=== PATIENT | female | born 1940 | race African-American/Black ===

== ENCOUNTER → 2018-05-11 | Outpatient (CLI) | payer MEDICARE | END | disposition home or self-care (01) | LOC: RAD 10:21 | DX: R05 Cough (principal) | CPT/HCPCS: 71046 ==

== ENCOUNTER → 2018-08-10 | Outpatient (CLI) | payer MEDICARE ==
--- NOTE | 2018-08-10 18:33 | RAD ---
Chest, 2 views, 08/10/2018: HISTORY: Cough, carbon monoxide exposure Comparison is made to a study from 05/11/2018. The heart size and pulmonary vascularity are normal. No pulmonary infiltrate is seen. There is no evidence of pleural fluid. Mild scattered degenerative changes are present in the spine. IMPRESSION: No acute cardiopulmonary abnormality is detected. Electronically signed by: Roshan Mirza MD (08/10/2018 6:30 PM) [facility]
== END | disposition home or self-care (01) ==
LOC: RAD 13:11
PROVIDERS: ATTEND Internal Medicine Pulmonary Disease
DX: M51.34 Other intervertebral disc degeneration, thoracic region (principal); Z77.118 Contact with and (suspected) exposure to other environmental pollution
CPT/HCPCS: 71046

== ENCOUNTER 2018-10-02 02:09 | Emergency (ER) | payer MEDICARE ==
[~2018-10-02] VITALS: Ht 157.5 cm; Wt 71.7 kg
[~2018-10-02 02:09] MED LIST: AMLO10TA6 PO; ASPI325T8 PO; CETI10TA22 PO; HYDR-2765 PO; METF500T3 PO; TIZA4TAB PO; [UNRECOGNIZED DRUG - CODE] PO
[2018-10-02] MEDS ORDERED: CYCL5TAB PO (03:08)
[2018-10-02] MEDS ORDERED: MELO7.5T29 PO (03:08)
--- NOTE | 2018-10-02 03:08 | PHYS DOC ---
Past Medical History Past Medical History: Hypertension Additional Past Medical Histor: SEASONAL ALLERGIES Past Surgical History: Hysterectomy, Other Additional Past Surgical Histo: R SHOULDER Alcohol Use: Occasionally Drug Use: None Adult General Chief Complaint Chief Complaint: Neck Pain HPI HPI Patient is a 78 year old female who presents with neck pain. This has been present for the past 4 days. No trauma. No numbness or paresthesias. No weakness. Patient had similar episode at the beginning of the month. Increased pain with movement. No fever. Mild headache at where the muscles attach at the back of the skull. Increased pain with movement. It feels like a spasm.[] Review of Systems Review of Systems Constitutional: Denies fever or chills [] Eyes: Denies change in visual acuity, redness, or eye pain [] HENT: Denies nasal congestion or sore throat [] Respiratory: Denies cough or shortness of breath [] Cardiovascular: No chest pain or palpitations[] GI: Denies abdominal pain, nausea, vomiting, bloody stools or diarrhea [] : Denies dysuria or hematuria [] Musculoskeletal: See history of present illness[] Integument: Denies rash or skin lesions [] Neurologic: Denies focal weakness or sensory changes, see history of present illness [] Endocrine: Denies polyuria or polydipsia [] All other systems were reviewed and found to be within normal limits, except as documented in this note. Allergies Allergies Allergies Coded Allergies Type Severity Reaction Last Updated Verified cephalexin Allergy Intermediate SWELLING 09/09/18 Yes metformin Allergy Intermediate SWELLING 09/09/18 Yes Physical Exam Physical Exam Constitutional: Well developed, well nourished, crit discomfort, non-toxic appearance. [] HENT: Normocephalic, atraumatic, bilateral external ears normal, oropharynx moist, no oral exudates, nose normal. [] Eyes: PERRLA, EOMI, conjunctiva normal, no discharge. [] Neck: Limited range of motion, spasm of bilateral cervical paraspinal musculature. No lymphadenopathy present. Palpation of the musculature re- creates the pain. There is no midline tenderness.[] Cardiovascular:Heart rate regular rhythm, no murmur [] Lungs & Thorax: Bilateral breath sounds clear to auscultation [] Abdomen: Not examined[] Skin: Warm, dry, no erythema, no rash. [] Back: No tenderness, no CVA tenderness. [] Extremities: No tenderness, no cyanosis, no clubbing, ROM intact, no edema. [] Neurologic: Alert and oriented X 3, normal motor function, normal sensory function, no focal deficits noted. [] Psychologic: Affect normal, judgement normal, mood normal. [] EKG EKG [] Radiology/Procedures Radiology/Procedures [] Course & Med Decision Making Course & Med Decision Making Pertinent Labs and Imaging studies reviewed. (See chart for details) Medical decision making: This appears to be muscle spasm, no evidence of neurologic issue, no evidence of meningitis. ED course: Patient arrived, was placed in bed, tolerated exam well. Patient was given IM NSAIDs since she drove herself. Discussed findings and plan with the patient who voiced understanding. All questions were answered. Dragon Disclaimer Dragon Disclaimer This electronic medical record was generated, in whole or in part, using a voice recognition dictation system. Departure Departure Impression: Primary Impression: Cervical paraspinal muscle spasm Disposition: HOME, SELF-CARE Condition: GOOD Referrals: SHERI GARRISON MD (PCP) Follow-up in 2 days Patient Instructions: Torticollis, Acute Additional Instructions: Follow-up with your regular doctor in 2 days. Apply warm compresses for 15 minutes at a time, at least 4 times a day to your neck. Take the medication as prescribed. Return to the ER if worsening pain or any other concerns. Scripts Cyclobenzaprine Hcl (CYCLOBENZAPRINE HCL) 5 Mg Tablet 5 MG PO PRN TID PRN for MUSCLE SPASM, #15 TAB Prov: MELECIO REID DO 10/02/18 Meloxicam (MELOXICAM) 7.5 Mg Tablet 7.5 MG PO DAILY, #20 TAB Prov: MELECIO REID DO 10/02/18 MELECIO REID DO Oct 02, 2018 03:08
[2018-10-02 03:15] VITALS: BP 149/86
[2018-10-02] MEDS ORDERED: KETOROLAC 15 MG/ML VIAL. IM ONE (03:30)
== END 2018-10-02 03:43 | disposition home or self-care (01) ==
LOC: ER 02:09
DX: M62.838 Other muscle spasm (principal); M54.2 Cervicalgia; R51 Headache; I10 Essential (primary) hypertension; Z88.1 Allergy status to other antibiotic agents; Z88.8 Allergy status to other drugs, medicaments and biological substances
CPT/HCPCS: 96372; 99283; J1885

== ENCOUNTER 2020-05-28 15:01 | Emergency (ER) | payer MEDICARE ==
[~2020-05-28] VITALS: Ht 154.9 cm; Wt 71.8 kg
[~2020-05-28 15:01] MED LIST changes: -AMLO10TA6 PO; +AMLO10TA8 PO; -CETI10TA22 PO; +CETI10TA24 PO; +CYCL5TAB PO; +LORA-790 PO; +MELO7.5T29 PO; -TIZA4TAB PO; +TIZA4TAB2 PO; -[UNRECOGNIZED DRUG - CODE] PO
[2020-05-28] MEDS ORDERED: FAMOTIDINE 20 MG/2 ML VIAL IVP ONE (16:00)
[2020-05-28] MEDS ORDERED: fentaNYL PF VIAL 100 MCG/2 ML VIAL IV PRN (16:00)
--- NOTE | 2020-05-28 16:12 | EKG ---
[facility] [address] [place] [address] Test Date: 2020-05-28 Test Time: 15:43:23 Pat Name: CARRIE MELENDEZ Department: Room: Gender: [employer] Person: : 1938-05-01 Requested By: RICARDO WINSLOW Order Number: [id number] Reading MD: Measurements Intervals [place] Rate: 89 P: 27 AL: 138 QRS: -25 QRSD: 72 T: 15 QT: 346 QTc: 422 Interpretive Statements SINUS RHYTHM LEFT ATRIAL ABNORMALITY LEFTWARD AXIS QRS(T) CONTOUR ABNORMALITY CONSISTENT WITH INFERIOR INFARCT PROBABLY OLD ABNORMAL ECG RI6.01 No previous ECG available for comparison
[2020-05-28 16:16] LABS: BASO # 0.1 x10^3/uL (0.0-0.2); BASO % 1 % (0-3); EOS # 0.2 x10^3/uL (0.0-0.7); EOS % 3 % (0-3); HEMATOCRIT 37.9 % (36.0-47.0); HEMOGLOBIN 12.7 g/dL (12.0-15.5); LYMPH # 3.4 x10^3/uL (1.0-4.8); LYMPH % 39 % (24-48); MEAN CORPUSCULAR HEMOGLOBIN 30 pg (25-35); MEAN CORPUSCULAR HGB CONC 33 g/dL (31-37); MEAN CORPUSCULAR VOLUME 89 fL (79-100); MONO % 11 % (0-9); NEUT # 4.1 x10^3/uL (1.8-7.7); NEUT % 47 % (31-73); PLATELET COUNT 345 x10^3/uL (140-400); RED BLOOD COUNT 4.25 x10^6/uL (3.50-5.40); RED CELL DISTRIBUTION WIDTH 14.6 % (11.5-14.5); WHITE BLOOD COUNT 8.8 x10^3/uL (4.0-11.0)
[2020-05-28 16:25] LABS: PROTHROMBIN TIME PATIENT 13.9 SEC (11.7-14.0)
--- NOTE | 2020-05-28 16:36 | RAD ---
EXAM: PORTABLE CHEST 1V INDICATION: Reason: rib pain, DRAWING BLOOD 3:58PM / Spl. Instructions: / History: . TECHNIQUE: Single view COMPARISON: None FINDINGS: The heart size is normal. The great vessels appear unremarkable. There is no hilar or mediastinal mass. The lungs are clear. There is no pleural effusion or pneumothorax. There are no significant osseous abnormalities. IMPRESSION: No active cardiopulmonary disease. Electronically signed by: Nicholas Herrera MD (05/28/2020 4:33 PM) [facility]
--- NOTE | 2020-05-28 16:45 | RAD ---
Ultrasound of the right upper quadrant of the abdomen 05/28/2020 CLINICAL HISTORY: Right upper quadrant abdominal pain. TECHNIQUE: A real-time ultrasound examination of the right upper quadrant of the abdomen was performed. Multiple images were obtained. FINDINGS: The gallbladder is contracted to some degree. No gallstones are visualized. The gallbladder wall thickness is within normal limits. No pericholecystic fluid is seen. The common bile duct measures 3 mm in diameter which is within normal limits. The liver is normal in size measuring 12.5 cm in length. Increased echogenicity of the liver parenchyma is seen consistent with fatty infiltration. No focal abnormality of the liver is noted. The visualized portions of the pancreas and right kidney are within normal limits. IMPRESSION: Fatty infiltration of the liver. Otherwise negative study. Electronically signed by: Hector Burr MD (05/28/2020 4:42 PM) [id number]
[2020-05-28 17:53] LABS: CALCIUM 8.9 mg/dL (8.5-10.1); CREATININE 0.9 mg/dL (0.6-1.0); GFR 72.4
[2020-05-28 17:54] VITALS: BP 132/63
[2020-05-28 18:00] LABS: ALBUMIN 3.7 g/dL (3.4-5.0); ALBUMIN/GLOBULIN RATIO 0.8 (1.0-1.7); MAGNESIUM 2.1 mg/dL (1.8-2.4); TOTAL BILIRUBIN 0.4 mg/dL (0.2-1.0); TOTAL PROTEIN 8.4 g/dL (6.4-8.2)
[2020-05-28 18:51] LABS: BILIRUBIN,URINE NEGATIVE (NEG); CLARITY,URINE CLOUDY; COLOR,URINE YELLOW; NITRITE,URINE NEGATIVE (NEG); PH,URINE 5.5 (<5.0-8.0); PROTEIN,URINE NEGATIVE (NEG-TRACE); UROBILINOGEN,URINE 0.2 mg/dL (0.2 mg/dL)
[2020-05-28 18:55] LABS: BACTERIA,URINE FEW /HPF (0-FEW); RBC,URINE 0 /HPF (0-2); SQUAMOUS EPITHELIAL CELL,UR FEW /LPF; WBC,URINE RARE /HPF (0-4)
[2020-05-28 18:58] LABS: BARBITURATES NEG (NEG); BENZODIAZEPINES NEG (NEG); CANNABINOIDS NEG (NEG); COCAINE NEG (NEG); METHADONE NEG (NEG); OPIATES NEG (NEG); PHENCYCLIDINE NEG (NEG)
[2020-05-28 19:01] LABS: AMPHETAMINE/METHAMPHETAMINE NEG (NEG)
[2020-05-28] MEDS ORDERED: HYDR-2761 PO (19:19)
[2020-05-28] MEDS ORDERED: CYCL10TA2 PO (19:19)
--- NOTE | 2020-05-28 19:20 | PHYS DOC ---
Past Medical History Past Medical History: No Pertinent History, Hypertension Additional Past Medical Histor: SEASONAL ALLERGIES Past Surgical History: Hysterectomy, Other Additional Past Surgical Histo: R SHOULDER Smoking Status: Never Smoker Alcohol Use: Occasionally Drug Use: None General Adult EDM: Chief Complaint: SHOUDLER HPI: HPI: Patient is a 82 year old female with history of hypertension who presents to the ED today complaining of intermittent episodes of 10 out of 10 right upper quadrant abdominal pain radiating to the right ribs into the right shoulder, patient reports symptoms began after eating "bad food" on Tuesday. Patient denies any exacerbating or relieving factors but she reports on Tuesday she also did some yard work and could have triggered the pain. Denies any nausea vomiting. Denies any diarrhea. Review of Systems: Review of Systems: Constitutional: Denies fever or chills. [] Eyes: Denies change in visual acuity. [] HENT: Denies nasal congestion or sore throat. [] Respiratory: Reports right lateral rib pain, denies cough or shortness of breath. [] Cardiovascular: Denies chest pain or edema. [] GI: Reports right upper quadrant abdominal pain, denies nausea, vomiting, bloody stools or diarrhea. [] : Denies dysuria. [] Musculoskeletal: Denies back pain or joint pain. [] Integument: Denies rash. [] Neurologic: Denies headache, focal weakness or sensory changes. [] Endocrine: Denies polyuria or polydipsia. [] Lymphatic: Denies swollen glands. [] Psychiatric: Denies depression or anxiety. [] Heart Score: HEART Score for Chest Pain: HEART Score for Chest Pain Response (Comments) Value History Slighlty/Non-Suspicious 0 ECG Normal 0 Age > 65 2 Risk Factors 1 or 2 Risk Factors 1 Troponin < Normal Limit 0 Total 3 Risk Factors: Risk Factors: DM, Current or recent (<one month) smoker, HTN, HLP, family history of CAD, obesity. Risk Scores: Score 0 - 3: 2.5% MACE over next 6 weeks - Discharge Home Score 4 - 6: 20.3% MACE over next 6 weeks - Admit for Clinical Observation Score 7 - 10: 72.7% MACE over next 6 weeks - Early Invasive Strategies Current Medications: Current Medications Medications (Trade) Dose Ordered Sig/Maribel Start Time Stop Time Status Last Admin Dose Admin Famotidine (Pepcid Vial) 20 mg 1X ONCE 05/28/20 16:00 05/28/20 16:01 DC 05/28/20 16:05 20 MG Fentanyl Citrate (Fentanyl 2ml Vial) 50 mcg PRN Q15MIN PRN 05/28/20 16:00 05/29/20 15:59 05/28/20 16:05 50 MCG Allergies: Allergies: Allergies Coded Allergies Type Severity Reaction Last Updated Verified cephalexin Allergy Intermediate SWELLING 09/09/18 Yes metformin Allergy Intermediate SWELLING 09/09/18 Yes Physical Exam: PE: Constitutional: Well developed, well nourished, no acute distress, non-toxic appearance. [] HENT: Normocephalic, atraumatic, bilateral external ears normal, oropharynx moist, no oral exudates, nose normal. [] Eyes: PERRLA, EOMI, conjunctiva normal, no discharge. [] Neck: Normal range of motion, no tenderness, supple, no stridor. [] Cardiovascular:Heart rate regular rhythm, no murmur [] Lungs & Thorax: Bilateral breath sounds clear to auscultation [] Abdomen: Bowel sounds normal, soft, no tenderness, no masses, no pulsatile masses. [] Skin: Warm, dry, no erythema, no rash. [] Back: No tenderness, no CVA tenderness. [] Extremities: No tenderness, no cyanosis, no clubbing, ROM intact, no edema. [] Neurologic: Alert and oriented X 3, normal motor function, normal sensory function, no focal deficits noted. [] Psychologic: Affect normal, judgement normal, mood normal. [] Current Patient Data: Labs: Laboratory Tests Test 05/28/20 16:00 05/28/20 17:25 05/28/20 18:40 White Blood Count 8.8 x10^3/uL (4.0-11.0) Red Blood Count 4.25 x10^6/uL (3.50-5.40) Hemoglobin 12.7 g/dL (12.0-15.5) Hematocrit 37.9 % (36.0-47.0) Mean Corpuscular Volume 89 fL (79-100) Mean Corpuscular Hemoglobin 30 pg (25-35) Mean Corpuscular Hemoglobin Concent 33 g/dL (31-37) Red Cell Distribution Width 14.6 % (11.5-14.5) H Platelet Count 345 x10^3/uL (140-400) Neutrophils (%) (Auto) 47 % (31-73) Lymphocytes (%) (Auto) 39 % (24-48) Monocytes (%) (Auto) 11 % (0-9) H Eosinophils (%) (Auto) 3 % (0-3) Basophils (%) (Auto) 1 % (0-3) Neutrophils # (Auto) 4.1 x10^3/uL (1.8-7.7) Lymphocytes # (Auto) 3.4 x10^3/uL (1.0-4.8) Monocytes # (Auto) 1.0 x10^3/uL (0.0-1.1) Eosinophils # (Auto) 0.2 x10^3/uL (0.0-0.7) Basophils # (Auto) 0.1 x10^3/uL (0.0-0.2) Prothrombin Time 13.9 SEC (11.7-14.0) Prothrombin Time INR 1.1 (0.8-1.1) D-Dimer (Maya) 0.44 ug/mlFEU (0.00-0.50) Sodium Level 138 mmol/L (136-145) Potassium Level 4.0 mmol/L (3.5-5.1) Chloride Level 101 mmol/L (98-107) Carbon Dioxide Level 29 mmol/L (21-32) Anion Gap 8 (6-14) Blood Urea Nitrogen 13 mg/dL (7-20) Creatinine 0.9 mg/dL (0.6-1.0) Estimated GFR (Cockcroft-Gault) 72.4 BUN/Creatinine Ratio 14 (6-20) Glucose Level 112 mg/dL (70-99) H Calcium Level 8.9 mg/dL (8.5-10.1) Magnesium Level 2.1 mg/dL (1.8-2.4) Total Bilirubin 0.4 mg/dL (0.2-1.0) Aspartate Amino Transferase (AST) 20 U/L (15-37) Alanine Aminotransferase (ALT) 21 U/L (14-59) Alkaline Phosphatase 60 U/L (46-116) Troponin I Quantitative < 0.017 ng/mL (0.000-0.055) IV-Yof-J-Type Natriuretic Peptide 39 pg/mL (0-449) Total Protein 8.4 g/dL (6.4-8.2) H Albumin 3.7 g/dL (3.4-5.0) Albumin/Globulin Ratio 0.8 (1.0-1.7) L Lipase 94 U/L (73-393) Thyroid Stimulating Hormone (TSH) 2.199 uIU/mL (0.358-3.74) Urine Collection Type Unknown Urine Color Yellow Urine Clarity Cloudy Urine pH 5.5 (<5.0-8.0) Urine Specific [place] 1.020 (1.000-1.030) Urine Protein Negative mg/dL (NEG-TRACE) Urine Glucose (UA) Negative mg/dL (NEG) Urine Ketones (Stick) 15 mg/dL (NEG) Urine Blood Negative (NEG) Urine Nitrite Negative (NEG) Urine Bilirubin Negative (NEG) Urine Urobilinogen Dipstick 0.2 mg/dL (0.2 mg/dL) Urine Leukocyte Esterase Negative (NEG) Urine RBC 0 /HPF (0-2) Urine WBC Rare /HPF (0-4) Urine Squamous Epithelial Cells Few /LPF Urine Bacteria Few /HPF (0-FEW) Urine Mucus Slight /LPF Urine Opiates Screen Neg (NEG) Urine Methadone Screen Neg (NEG) Urine Barbiturates Neg (NEG) Urine Phencyclidine Screen Neg (NEG) Urine Amphetamine/Methamphetamine Neg (NEG) Urine Benzodiazepines Screen Neg (NEG) Urine Cocaine Screen Neg (NEG) Urine Cannabinoids Screen Neg (NEG) Urine Ethyl Alcohol Neg (NEG) Laboratory Tests 05/28/20 16:00 Laboratory Tests 05/28/20 17:25 Vital Signs: Vital Signs Date Time Temp Pulse Resp B/P (MAP) Pulse Ox O2 Delivery O2 Flow Rate FiO2 05/28/20 17:54 78 132/63 (86) 96 05/28/20 15:35 98.1 20 Room Air 98.1 EKG: EKG: [] Radiology/Procedures: Radiology/Procedures: []PROCEDURE: ABDOMEN LTD Ultrasound of the right upper quadrant of the abdomen 05/28/2020 CLINICAL HISTORY: Right upper quadrant abdominal pain. TECHNIQUE: A real-time ultrasound examination of the right upper quadrant of the abdomen was performed. Multiple images were obtained. FINDINGS: The gallbladder is contracted to some degree. No gallstones are visualized. The gallbladder wall thickness is within normal limits. No pericholecystic fluid is seen. The common bile duct measures 3 mm in diameter which is within normal limits. The liver is normal in size measuring 12.5 cm in length. Increased echogenicity of the liver parenchyma is seen consistent with fatty infiltration. No focal abnormality of the liver is noted. The visualized portions of the pancreas and right kidney are within normal limits. IMPRESSION: Fatty infiltration of the liver. Otherwise negative study. Electronically signed by: Hector Burr MD (05/28/2020 4:42 PM) [id number] DICTATED and SIGNED BY: HECTOR BURR MD DATE: 05/28/20 1642 PROCEDURE: PORTABLE CHEST 1V EXAM: PORTABLE CHEST 1V INDICATION: Reason: rib pain, DRAWING BLOOD 3:58PM / Spl. Instructions: / History: . TECHNIQUE: Single view COMPARISON: None FINDINGS: The heart size is normal. The great vessels appear unremarkable. There is no hilar or mediastinal mass. The lungs are clear. There is no pleural effusion or pneumothorax. There are no significant osseous abnormalities. IMPRESSION: No active cardiopulmonary disease. Electronically signed by: Claudia Herrera MD (05/28/2020 4:33 PM) [facility] DICTATED and SIGNED BY: CLAUDIA HERRERA MD DATE: 05/28/20 1633 Course & Med Decision Making: Course & Med Decision Making Pertinent Labs and Imaging studies reviewed. (See chart for details) This is a 82-year-old female patient presenting to the ED today complaining of right upper quadrant abdominal pain radiating to the right ribs into the right shoulder and back, symptoms began on Tuesday after she ate bad food. EKG is negative, CBC, CMP, lipase, troponin, chest x-ray, UA, D-dimer abdominal ultrasound are all negative for any acute findings. Patient appears to have muscle skeletal pain. I offered to repeat her troponin, she states she has to leave. She has good follow-up. Encourage her to follow-up with her own PCP. Mell Disclaimer: Mell Disclaimer: This electronic medical record was generated, in whole or in part, using a voice recognition dictation system. Departure Departure Impression: Primary Impression: Rib pain on right side Additional Impressions: Musculoskeletal pain of upper extremity Qualified Codes: M79.601 - Pain in right arm Right upper quadrant pain Disposition: HOME, SELF-CARE Condition: STABLE Referrals: CHERYLE RICE D.O. (PCP) Follow-up in the course of this week Patient Instructions: Abdominal Pain, Musculoskeletal Pain Additional Instructions: You were evaluated in the emergency room, your work-up was negative for any acute findings. Please follow-up with your own doctor in the course of this week. Take the prescribed medications as ordered. Scripts Cyclobenzaprine Hcl (CYCLOBENZAPRINE HCL) 10 Mg Tablet 1 TAB PO TID, #30 TAB Prov: RIACRDO WINSLOW APRN 05/28/20 Hydrocodone Bit/Acetaminophen (HYDROCODONE-APAP 5-325 ) 1 Tab Tablet 1 TAB PO PRN Q6HRS PRN for PAIN, #10 TAB 0 Refills Prov: RICARDO WINSLOW APRN 05/28/20 Justicifation of Admission Dx: Justifications for Admission: Justification of Admission Dx: N/A RICARDO WINSLOW APRN May 28, 2020 19:20
== END 2020-05-28 19:30 | disposition home or self-care (01) ==
LOC: ER 15:01
DX: R07.81 Pleurodynia (principal); M79.601 Pain in right arm; R10.11 Right upper quadrant pain; M25.511 Pain in right shoulder; I10 Essential (primary) hypertension; Z90.710 Acquired absence of both cervix and uterus; Z88.1 Allergy status to other antibiotic agents; Z88.5 Allergy status to narcotic agent
CPT/HCPCS: 36415; 71045; 76705; 80053; 80307; 81001; 83690; 83735; 83880; 84443; 84484; 85025; 85379; 85610; 93005; 96374; 96375; 99285; J3010; J3490

== ENCOUNTER 2020-12-02 11:20 | Emergency (ER) | payer MEDICARE ==
[~2020-12-02] VITALS: Ht 154.9 cm; Wt 65.0 kg
[~2020-12-02 11:20] MED LIST changes: +AMLO-187 PO; -AMLO10TA8 PO; -CETI10TA24 PO; +CETI10TA74 PO; +CYCL10TA2 PO; +HYDR-2761 PO
--- NOTE | 2020-12-02 12:38 | ED.ADGEN ---
Past Medical History Past Medical History: No Pertinent History, Hypertension Additional Past Medical Histor: SEASONAL ALLERGIES, carbon monoxide poisoning related paresthesias Past Surgical History: Hysterectomy, Other Additional Past Surgical Histo: R SHOULDER Smoking Status: Never Smoker Alcohol Use: Occasionally Drug Use: None General Adult EDM: Chief Complaint: OTHER COMPLAINTS HPI: HPI: Patient is a 82 year old AA female who presents emergency department with complaints of an abnormal sensation in her tongue and her face since 930 this morning. Patient states she was eating breakfast when she realized that her tongue felt numb. Patient reports she has had problems with a burning pain in her face for the last 2 years after suffering from carbon monoxide poisoning. Patient states that the paresthesias in her face feel different than normal today. She states that the left side of her face feels like a dull burning sensation in the right side of her face feels more sharp. She denies any vision changes, loss of vision, dizziness, numbness, tingling, weakness, problems speaking, or problems with coordination. She denies any fever, cough, shortness of breath, chest pain, palpitations, headache, abdominal pain, nausea, vomiting, or diarrhea. She denies any pain at this time her only complaint is the abnormal burning sensation in her face. Review of Systems: Review of Systems: Complete ROS is negative unless otherwise noted in HPI. Current Medications: Current Medications Medications (Trade) Dose Ordered Sig/Maribel Start Time Stop Time Status Last Admin Dose Admin Info (CONTRAST GIVEN -- Rx MONITORING) 1 each PRN DAILY PRN 12/02/20 13:15 12/02/20 17:07 DC Iohexol (Omnipaque 300 Mg/ml) 75 ml 1X ONCE 12/02/20 13:15 12/02/20 13:16 DC 12/02/20 13:28 75 ML Allergies: Allergies: Allergies Coded Allergies Type Severity Reaction Last Updated Verified cephalexin Allergy Intermediate SWELLING 09/09/18 Yes metformin Allergy Intermediate SWELLING 09/09/18 Yes Physical Exam: PE: See Above Constitutional: Well developed, well nourished, no acute distress, non-toxic appearance. [] HENT: Normocephalic, atraumatic, bilateral external ears normal, oropharynx moist, no oral exudates, nose normal. [] Eyes: PERRLA, EOMI, conjunctiva normal, no discharge. [] Neck: Normal range of motion, no tenderness, supple, no stridor. [] Cardiovascular:Heart rate regular rhythm Lungs & Thorax: Respirations even and unlabored, no retractions, no respiratory distress Abdomen: soft, no tenderness, no masses, no pulsatile masses. [] Skin: Warm, dry, no erythema, no rash. [] Back: No tenderness, no CVA tenderness. [] Extremities: No tenderness, no cyanosis, no clubbing, ROM intact, no edema. [] Neurologic: Alert and oriented X 3, normal motor function; there is decreased sensation in the left face versus the right face, mild right-sided facial droop is noted. See NIH assessment Psychologic: Affect normal, judgement normal, mood normal. [] Current Patient Data: Labs: Laboratory Tests Test 12/02/20 12:39 White Blood Count 7.2 x10^3/uL (4.0-11.0) Red Blood Count 4.33 x10^6/uL (3.50-5.40) Hemoglobin 12.7 g/dL (12.0-15.5) Hematocrit 38.5 % (36.0-47.0) Mean Corpuscular Volume 89 fL (79-100) Mean Corpuscular Hemoglobin 29 pg (25-35) Mean Corpuscular Hemoglobin Concent 33 g/dL (31-37) Red Cell Distribution Width 14.5 % (11.5-14.5) Platelet Count 274 x10^3/uL (140-400) Neutrophils (%) (Auto) 44 % (31-73) Lymphocytes (%) (Auto) 42 % (24-48) Monocytes (%) (Auto) 11 % (0-9) H Eosinophils (%) (Auto) 2 % (0-3) Basophils (%) (Auto) 1 % (0-3) Neutrophils # (Auto) 3.2 x10^3/uL (1.8-7.7) Lymphocytes # (Auto) 3.0 x10^3/uL (1.0-4.8) Monocytes # (Auto) 0.8 x10^3/uL (0.0-1.1) Eosinophils # (Auto) 0.2 x10^3/uL (0.0-0.7) Basophils # (Auto) 0.1 x10^3/uL (0.0-0.2) Prothrombin Time 13.5 SEC (11.7-14.0) Prothrombin Time INR 1.1 (0.8-1.1) Activated Partial Thromboplast Time 26 SEC (24-38) Sodium Level 135 mmol/L (136-145) L Potassium Level 4.0 mmol/L (3.5-5.1) Chloride Level 100 mmol/L (98-107) Carbon Dioxide Level 25 mmol/L (21-32) Anion Gap 10 (6-14) Blood Urea Nitrogen 17 mg/dL (7-20) Creatinine 1.0 mg/dL (0.6-1.0) Estimated GFR (Cockcroft-Gault) 64.1 Glucose Level 235 mg/dL (70-99) H Calcium Level 8.9 mg/dL (8.5-10.1) Troponin I Quantitative < 0.017 ng/mL (0.000-0.055) Laboratory Tests 12/02/20 12:39 Laboratory Tests 12/02/20 12:39 Vital Signs: Vital Signs Date Time Temp Pulse Resp B/P (MAP) Pulse Ox O2 Delivery O2 Flow Rate FiO2 12/02/20 16:51 81 176/97 (123) 12/02/20 16:21 18 96 Room Air 12/02/20 12:18 98.0 98.0 EKG: EKG: [] Heart Score: Risk Factors: Risk Factors: DM, Current or recent (<one month) smoker, HTN, HLP, family history of CAD, obesity. Risk Scores: Score 0 - 3: 2.5% MACE over next 6 weeks - Discharge Home Score 4 - 6: 20.3% MACE over next 6 weeks - Admit for Clinical Observation Score 7 - 10: 72.7% MACE over next 6 weeks - Early Invasive Strategies Radiology/Procedures: Radiology/Procedures: PROCEDURE: PORTABLE CHEST 1V XR CHEST 1V History: Reason: code stroke / Spl. Instructions: / History: Comparison: May 28, 2020 Findings: No consolidation or pleural effusion. Normal heart size. No pneumothorax. Impression: 1. No acute cardiopulmonary process. Electronically signed by: Osito Hamilton DO (12/02/2020 12:54 PM) [id number] PROCEDURE: CT CODE STROKE HEAD WO CT STROKE HEAD W/O History: Reason: facial paresthesia ED 23 EXT 4180 / Spl. Instructions: / History: Comparison: September 09, 2018 Technique: Noncontrast CT imaging was performed of the head. Exposure: One or more of the following individualized dose reduction techniques were utilized for this examination: 1. Automated exposure control 2. Adjustment of the mA and/or kV according to patient size 3. Use of iterative reconstruction technique. Findings: No intracranial hemorrhage. No mass effect. No hydrocephalus. Mild foci of decreased attenuation within the hemispheric white matter, most often due to chronic microvascular ischemia. Imaged orbits are unremarkable. Imaged paranasal sinuses and mastoid air cells are clear. No acute calvarial fracture. Impression: 1. No acute intracranial abnormality. FOR INTERNAL CODING PURPOSES Critical result: Findings discussed with ER at 12/02/2020 12:49 PM. RESULT CODE: (C) Electronically signed by: Osito Hamilton DO (12/02/2020 12:54 PM) [id number] PROCEDURE: CT CODE STROKE HEAD WO CT STROKE HEAD W/O History: Reason: facial paresthesia ED 23 EXT 4180 / Spl. Instructions: / History: Comparison: September 09, 2018 Technique: Noncontrast CT imaging was performed of the head. Exposure: One or more of the following individualized dose reduction techniques were utilized for this examination: 1. Automated exposure control 2. Adjustment of the mA and/or kV according to patient size 3. Use of iterative reconstruction technique. Findings: No intracranial hemorrhage. No mass effect. No hydrocephalus. Mild foci of decreased attenuation within the hemispheric white matter, most often due to chronic microvascular ischemia. Imaged orbits are unremarkable. Imaged paranasal sinuses and mastoid air cells are clear. No acute calvarial fracture. Impression: 1. No acute intracranial abnormality. FOR INTERNAL CODING PURPOSES Critical result: Findings discussed with ER at 12/02/2020 12:49 PM. RESULT CODE: (C) Electronically signed by: Osito Hamilton DO (12/02/2020 12:54 PM) [id number] PROCEDURE: BRAIN W/O CONTRAST MRI of the brain without contrast 12/02/2020 Clinical History: Facial paresthesias. Technique: Unenhanced T1-weighted sagittal and axial, T2-weighted axial and coronal and FLAIR, gradient echo and diffusion-weighted axial images of the brain were obtained. Findings: Comparison is made to patient's CTA scan of the head from earlier today. There is generalized parenchymal atrophy. Patchy and a few small scattered areas of increased signal intensity are seen within the periventricular and subcortical white matter of both cerebral hemispheres on the FLAIR and T2- weighted images consistent with areas of mild small vessel ischemic disease. No acute parenchymal abnormality is seen. No extra-axial fluid collection is seen. There is no MRI evidence of acute ischemia/infarction. Mild mucosal thickening in seen scattered throughout the paranasal sinuses. Normal flow voids are seen within the major vascular structures surrounding the brain parenchyma. Impression: No acute parenchymal abnormality is seen. Electronically signed by: Hector Burr MD (12/02/2020 3:29 PM) [id number] [] Course & Med Decision Making: Course & Med Decision Making Pertinent Labs and Imaging studies reviewed. (See chart for details) 1256- I spoke with Dr. Rdz about the patient and PE findings. Advised him that the head CT was negative, will order CT angio head/neck and MRI of brain per his instruction, Advised that code stroke was activated. 1622- I spoke with Dr. Rdz and notified him of the CTA and MRI results. Per Dr. Rdz I will instruct the patient to take a 325 mg aspirin daily and to follow up with her neurologist as soon as possible. I advised the patient of her negative imaging results. I encouraged her to take a full-strength aspirin daily. I instructed the patient to call her neurologist tomorrow morning to schedule a follow-up appointment as soon as possible. I instructed the patient to inform her neurologist that she had been evaluated here and had a work-up for stroke including MRI. The patient was also provided with Dr. Mcrae's information for follow-up in the event that she is unable to follow-up with her neurologist in a timely manner. I encouraged her to return to the emergency room if her symptoms worsened or fever develop. The patient verbalized an understanding of home care, medications, follow-up, and return to ED instructions and was in agreement with the plan of care. [] Dragon Disclaimer: Dragon Disclaimer: This electronic medical record was generated, in whole or in part, using a voice recognition dictation system. Departure Departure Impression: Primary Impression: Facial paresthesia Disposition: 01 DC HOME SELF CARE/HOMELESS Condition: STABLE Referrals: CHERYLE RICE D.O. (PCP) PHILIP RDZ MD Patient Instructions: Paresthesia, [id number] Additional Instructions: Take a full strength 325 mg Aspirin daily. Follow up with your neurologist, or Dr. Rdz this week, return to the ER if symptoms worsen or you develop a fever. NIHSS Stroke Scale NIH Stroke Scale: NIH Stroke Scale Response (Comments) Value Level of Consciousness: 0 Alert/Responsive 0 LOC Questions: 0 Answers both correctly 0 LOC Commands: 0 Performs both tasks 0 Best Gaze: 0 Normal 0 Visual: 0 No visual loss 0 Facial Palsy: 1 Minor paralysis 1 Motor - Left Arm 0 No drift 0 Motor - Right Arm 0 No drift 0 Motor - Left Leg 0 No drift 0 Motor: Right Leg 0 No drift 0 Limb Ataxia: 0 Absent 0 Sensory: 1 Mid to moderate loss 1 Best Language: 0 Normal 0 Dysathria: 0 Normal 0 Extinction and Inattention: 0 Normal 0 Total 2 MALLORY RENE APRN Dec 02, 2020 12:38
[2020-12-02 12:44] LABS: BASO # 0.1 x10^3/uL (0.0-0.2); BASO % 1 % (0-3); EOS # 0.2 x10^3/uL (0.0-0.7); EOS % 2 % (0-3); HEMATOCRIT 38.5 % (36.0-47.0); HEMOGLOBIN 12.7 g/dL (12.0-15.5); LYMPH % 42 % (24-48); MEAN CORPUSCULAR HEMOGLOBIN 29 pg (25-35); MEAN CORPUSCULAR HGB CONC 33 g/dL (31-37); MEAN CORPUSCULAR VOLUME 89 fL (79-100); MONO # 0.8 x10^3/uL (0.0-1.1); MONO % 11 % (0-9); NEUT # 3.2 x10^3/uL (1.8-7.7); NEUT % 44 % (31-73); PLATELET COUNT 274 x10^3/uL (140-400); RED BLOOD COUNT 4.33 x10^6/uL (3.50-5.40); RED CELL DISTRIBUTION WIDTH 14.5 % (11.5-14.5); WHITE BLOOD COUNT 7.2 x10^3/uL (4.0-11.0)
[2020-12-02 12:53] LABS: PROTHROMBIN TIME PATIENT 13.5 SEC (11.7-14.0)
--- NOTE | 2020-12-02 12:56 | RAD ---
CT STROKE HEAD W/O History: Reason: facial paresthesia ED 23 EXT 4180 / Spl. Instructions: / History: Comparison: September 09, 2018 Technique: Noncontrast CT imaging was performed of the head. Exposure: One or more of the following individualized dose reduction techniques were utilized for thi s examination: 1. Automated exposure control 2. Adjustment of the mA and/or kV according to patient size 3. Use of iterative reconstruction technique. Findings: No intracranial hemorrhage. No mass effect. No hydrocephalus. Mild foci of decreased attenuation within the hemispheric white matter, most often due to chronic tim rovascular ischemia. Imaged orbits are unremarkable. Imaged paranasal sinuses and mastoid air cells are clear. No acute ca lvarial fracture. Impression: 1. No acute intracranial abnormality. FOR INTERNAL CODING PURPOSES Critical result: Findings discussed with ER at 12/02/2020 12:49 PM. RESULT CODE: (C) Electronically signed by: Osito Hamilton DO (12/02/2020 12:54 PM) [id number]
[2020-12-02 12:57] LABS: CALCIUM 8.9 mg/dL (8.5-10.1); GFR 64.1
--- NOTE | 2020-12-02 12:57 | RAD ---
XR CHEST 1V History: Reason: code stroke / Spl. Instructions: / History: Comparison: May 28, 2020 Findings: No consolidation or pleural effusion. Normal heart size. No pneumothorax. Impression: 1. No acute cardiopulmonary process. Electronically signed by: Osito Hamilton DO (12/02/2020 12:54 PM) [id number]
[2020-12-02] MEDS ORDERED: CONTRAST GIVEN. MC PRN (13:15)
[2020-12-02] MEDS ORDERED: IOHEXOL 300 MG/ML 100ML VIAL. IV ONE (13:15)
--- NOTE | 2020-12-02 14:46 | RAD ---
CTA HEAD AND NECK W/WO CONTRAST History:Reason: facial paresthesias IV OMNI 300 75 MLS / Spl. Instructions: [id number] / History: Technique: After bolus of intravenous contrast, volumetric CT data acquisition was acquired of the he ad and neck. Multiplanar reconstruction images to include MIP and 3-D reconstruction images are submi tted. Exposure: One or more of the following individualized dose reduction techniques were utilized for thi s examination: 1. Automated exposure control 2. Adjustment of the mA and/or kV according to patient size 3. Use of iterative reconstruction technique. Comparison: CT December 02, 2020 Any determination of stenosis is based on NASCET criteria. Head CTA: ICA: Extensive atheromatous plaque within the carotid siphons. Severe narrowing of the right proximal cavernous internal carotid artery. Moderate narrowing of the left distal cavernous internal carotid artery. Mild additional narrowing bilaterally. MCA: Mild narrowing of the right distal M1 segment due to atheromatous disease. Mild narrowing of the left proximal M1 segment. No occlusion. ROLAN: No stenosis, occlusion or aneurysm. HEEL ATTACHER WOOD: Mild narrowing of the left P1/P2 segment. origin of the left posterior cerebral artery. Basilar artery: No stenosis, occlusion or aneurysm. Distal vertebral arteries: Severe narrowing of the left intracranial distal vertebral artery. Moderat e narrowing of the right distal intracranial vertebral artery. Patent superior sagittal, straight, transverse and sigmoid venous sinuses. CT angiogram neck: Aortic arch: Minimal atheromatous plaque. Common carotid arteries: No stenosis, occlusion or dissection. Internal carotid arteries: Mild atheromatous plaque within the bilateral carotid bifurcations. No yosvany nosis or occlusion. External carotid arteries: Patent Vertebral arteries: Moderate narrowing of the left upper vertebral artery at the C1 level (series 4 i mage 615). Imaged lung apices are unremarkable. Soft tissues appear normal. Bones: Multilevel cervical spondylosis. Multilevel neuroforaminal narrowing. No high-grade canal sten osis. Impression: 1. No arterial occlusion. 2. Severe right and moderate left cavernous internal carotid artery narrowing. 3. 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 4. Multifocal additional atheromatous disease within the head and neck with mild narrowings, as desc ribed. FOR INTERNAL CODING PURPOSES Critical result: Findings discussed with ER at 12/02/2020 2:43 PM. RESULT CODE: (C) Electronically signed by: Osito Hamilton DO (12/02/2020 2:44 PM) [id number]
--- NOTE | 2020-12-02 15:32 | RAD ---
MRI of the brain without contrast 12/02/2020 Clinical History: Facial paresthesias. Technique: Unenhanced T1-weighted sagittal and axial, T2-weighted axial and coronal and FLAIR, gradie nt echo and diffusion-weighted axial images of the brain were obtained. Findings: Comparison is made to patient's CTA scan of the head from earlier today. There is generalized parenchymal atrophy. Patchy and a few small scattered areas of increased signal intensity are seen within the periventricular and subcortical white matter of both cerebral hemispher es on the FLAIR and T2-weighted images consistent with areas of mild small vessel ischemic disease. N o acute parenchymal abnormality is seen. No extra-axial fluid collection is seen. There is no MRI hellen dence of acute ischemia/infarction. Mild mucosal thickening in seen scattered throughout the paranasal sinuses. Normal flow voids are see n within the major vascular structures surrounding the brain parenchyma. Impression: No acute parenchymal abnormality is seen. Electronically signed by: Hector Burr MD (12/02/2020 3:29 PM) [id number]
[2020-12-02 16:51] VITALS: BP 176/97
--- NOTE | 2020-12-02 19:53 | EKG ---
[facility] [address] [place] [address] Test Date: 2020-12-02 Test Time: 12:48:44 Pat Name: CARRIE MELENDEZ Department: Room: Gender: F [employer] Buster: : 1938-05-01 Requested By: MALLORY RENE Order Number: [id number] Reading MD: Measurements Intervals [place] Rate: 94 P: 31 GA: 140 QRS: -26 QRSD: 78 T: 18 QT: 342 QTc: 433 Interpretive Statements SINUS RHYTHM LEFTWARD AXIS R-S TRANSITION ZONE IN V LEADS DISPLACED TO THE LEFT QRS(T) CONTOUR ABNORMALITY CONSIDER ANTEROLATERAL MYOCARDIAL DAMAGE CONSISTENT WITH INFERIOR INFARCT PROBABLY OLD ABNORMAL ECG RI6.01 No previous ECG available for comparison
== END 2020-12-02 17:07 | disposition home or self-care (01) ==
LOC: ER 11:20
DX: R20.2 Paresthesia of skin (principal); I10 Essential (primary) hypertension; Z90.710 Acquired absence of both cervix and uterus; Z98.890 Other specified postprocedural states; Z88.1 Allergy status to other antibiotic agents; Z88.8 Allergy status to other drugs, medicaments and biological substances
CPT/HCPCS: 36415; 70450; 70496; 70498; 70551; 71045; 80048; 84484; 85025; 85610; 85730; 93005; 99285; Q9967